=== PATIENT | female | born 1935 | race Caucasian/White ===

== ENCOUNTER 2017-06-20 11:34 | Emergency (ER) | payer OTHER ==
[~2017-06-20] VITALS: Ht 160 cm; Wt 66.8 kg
[~2017-06-20 11:34] MED LIST: ALPHAGAN P100 DROP/5 BOTH EYES; ARICEPT10 MG PO; BYSTOLIC5 MG PO; COZAAR100 MG PO; XALATAN2.5 ML BOTH EYES
[2017-06-20 12:23] LABS: EOSINOPHIL (%) 2.4 % (0-5); EOSINOPHIL COUNT 0.1 K/uL (0-0.3); HEMATOCRIT 40.1 % (36.0-46.0); IMMATURE GRANULOCYTE (%) 0.2 % (0.0-0.7); INSTRUMENT ABS NEUTROPHIL CT 3.7 K/uL; LYMPHOCYTE COUNT 1.1 K/uL (1.0-2.8); MCH 31.7 PG (29.0-34.0); MCHC 33.2 G/DL (30.0-36.0); MCV 95.7 FL (83-99); MONOCYTE (%) 9.4 % (3-12); MONOCYTE COUNT 0.5 K/uL (0-0.8); NEUTROPHIL (%) 67.3 % (45-76); NEUTROPHIL COUNT 3.7 K/uL (1.8-6.4); PLATELET COUNT 165 K/uL (156-360); RBC DIS.WIDTH-CV 13.3 % (11.8-14.6); RBC DIS.WIDTH-SD 47.1 % (39-53); RED BLOOD COUNT 4.19 M/uL (3.80-5.20); WHITE BLOOD COUNT 5.4 K/uL (4.1-10.2)
[2017-06-20 12:40] LABS: CHLORIDE 105 mEq/L (99-109); POTASSIUM 4.7 mEq/L (3.7-5.4); SODIUM 142 mEq/L (136-147)
[2017-06-20 12:41] LABS: GLUCOSE 111 mg/dL (70-99)
[2017-06-20 12:43] LABS: ANION GAP 9 MEQ/L (2-14)
[2017-06-20 12:45] LABS: GFR ESTIMATE (CALCULATED) > 59 mL/min/
[2017-06-20 12:46] LABS: UREA NITROGEN (BUN) 22 mg/dL (9-23)
[2017-06-20 14:05] VITALS: BP 156/72
== END 2017-06-20 14:26 | disposition home or self-care (01) ==
LOC: EME 11:34
PROVIDERS: Emergency Medicine
PROC: 0HQ0XZZ Repair Scalp Skin, External Approach (ICD-10-PCS; principal; 2017-06-20)
DX: S01.01XA Laceration without foreign body of scalp, initial encounter (principal); W18.30XA Fall on same level, unspecified, initial encounter; F03.90 Unspecified dementia, unspecified severity, without behavioral disturbance, psychotic disturbance, mood disturbance, and anxiety; I10 Essential (primary) hypertension
CPT/HCPCS: 70450; 80048; 85025; 99281; 99283

== ENCOUNTER 2017-10-29 14:56 | Emergency (ER) | payer OTHER ==
[~2017-10-29] VITALS: Ht 170.2 cm; Wt 63.6 kg
[2017-10-29 15:29] LABS: HEMATOCRIT 37.9 % (36.0-46.0); HEMOGLOBIN 12.7 G/DL (11.9-15.5); MCH 31.7 PG (29.0-34.0); MCHC 33.5 G/DL (30.0-36.0); MCV 94.5 FL (83-99); PLATELET COUNT 145 K/uL (156-360); RBC DIS.WIDTH-CV 13.4 % (11.8-14.6); RBC DIS.WIDTH-SD 46.3 % (39-53); RED BLOOD COUNT 4.01 M/uL (3.80-5.20); WHITE BLOOD COUNT 5.3 K/uL (4.1-10.2)
[2017-10-29 15:39] LABS: ALBUMIN 3.7 g/dL (3.2-4.8); CHLORIDE 108 mEq/L (99-109)
[2017-10-29 15:40] LABS: POTASSIUM 4.1 mEq/L (3.7-5.4); SODIUM 143 mEq/L (136-147)
[2017-10-29 15:42] LABS: GLUCOSE 113 mg/dL (70-99); TOTAL PROTEIN 6.1 g/dL (6.4-8.3)
[2017-10-29 15:44] LABS: TOTAL BILIRUBIN 0.6 mg/dL (0.0-1.0)
[2017-10-29 15:45] LABS: ALKALINE PHOSPHATASE 117 IU/L (3-129); CREATININE 0.9 mg/dL (0.6-1.3); GFR ESTIMATE (CALCULATED) > 59 mL/min/
[2017-10-29 15:47] LABS: AST (GOT) 19 IU/L (2-34); UREA NITROGEN (BUN) 22 mg/dL (9-23)
[2017-10-29 15:48] LABS: ALT (GPT) 14 IU/L (3-49)
[2017-10-29 17:06] LABS: APPEARANCE CLOUDY ((CLEAR)); BILIRUBIN NEGATIVE; BLOOD NEGATIVE; COLOR YELLOW ((YELLOW)); GLUCOSE (STRIP) NEGATIVE; KETONES 5; LEUKOCYTES NEGATIVE; NITRITE NEGATIVE; PROTEIN (STRIP) NEGATIVE; SPECIFIC GRAVITY 1.018 (1.000-1.030)
[2017-10-29 17:20] LABS: AMORPHOUS URATES CRYSTALS 2+; BACTERIA NONE SEEN /HPF; EPITHELIAL CELLS RARE /HPF; MUCUS 2+ /LPF; RED BLOOD CELLS NONE SEEN /HPF (0-5); WHITE BLOOD CELLS NONE SEEN /HPF (0-5)
[2017-10-29 19:35] VITALS: BP 176/71
== END 2017-10-29 19:37 | disposition home or self-care (01) ==
LOC: EME 14:56
PROVIDERS: Emergency Medicine
DX: F03.91 Unspecified dementia, unspecified severity, with behavioral disturbance (principal); I10 Essential (primary) hypertension
CPT/HCPCS: 80053; 81003; 83605; 85027; 87086; 93005; 99281; 99284; J7030

== ENCOUNTER 2017-11-09 15:07 | Inpatient (IN) | payer OTHER ==
[~2017-11-09] VITALS: Ht 167.6 cm; Wt 66.3 kg
[~2017-11-09 15:07] MED LIST changes: -COZAAR100 MG PO; +COZAAR50 MG PO
[2017-11-09 16:32] LABS: BASOPHIL (%) 0.5 % (0-1); EOSINOPHIL (%) 0 % (0-5); HEMATOCRIT 38.5 % (36.0-46.0); HEMOGLOBIN 13.1 G/DL (11.9-15.5); IMMATURE GRANULOCYTE (%) 0.3 % (0.0-0.7); LYMPHOCYTE (%) 9.9 % (15-42); LYMPHOCYTE COUNT 0.6 K/uL (1.0-2.8); MCH 31.8 PG (29.0-34.0); MCV 93.4 FL (83-99); MONOCYTE (%) 20.8 % (3-12); MONOCYTE COUNT 1.3 K/uL (0-0.8); NEUTROPHIL (%) 68.5 % (45-76); NEUTROPHIL COUNT 4.2 K/uL (1.8-6.4); PLATELET COUNT 117 K/uL (156-360); RBC DIS.WIDTH-CV 13.8 % (11.8-14.6); RBC DIS.WIDTH-SD 47.6 % (39-53); RED BLOOD COUNT 4.12 M/uL (3.80-5.20); WHITE BLOOD COUNT 6.2 K/uL (4.1-10.2)
[2017-11-09 16:42] LABS: ALBUMIN 3.9 g/dL (3.2-4.8); CHLORIDE 103 mEq/L (99-109); POTASSIUM 4.5 mEq/L (3.7-5.4); SODIUM 138 mEq/L (136-147)
[2017-11-09 16:43] LABS: MAGNESIUM 1.8 mg/dL (1.3-2.7)
[2017-11-09 16:44] LABS: GLUCOSE 105 mg/dL (70-99)
[2017-11-09 16:45] LABS: TOTAL PROTEIN 6.5 g/dL (6.4-8.3)
[2017-11-09 16:46] LABS: TOTAL BILIRUBIN 0.8 mg/dL (0.0-1.0)
[2017-11-09 16:48] LABS: ALKALINE PHOSPHATASE 114 IU/L (3-129); CREATININE 0.9 mg/dL (0.6-1.3); GFR ESTIMATE (CALCULATED) > 59 mL/min/
[2017-11-09 16:49] LABS: UREA NITROGEN (BUN) 17 mg/dL (9-23)
[2017-11-09 16:50] LABS: AST (GOT) 18 IU/L (2-34)
[2017-11-09 16:51] LABS: ALT (GPT) 15 IU/L (3-49)
[2017-11-09 16:52] LABS: TROP-I INTERPRETATION NEGATIVE; TROPONIN-I 0.02 ng/mL (0.0-0.30)
[2017-11-09 17:10] LABS: APPEARANCE SL.HAZY ((CLEAR)); BILIRUBIN NEGATIVE; BLOOD NEGATIVE; COLOR YELLOW ((YELLOW)); GLUCOSE (STRIP) NEGATIVE; KETONES 5; LEUKOCYTES NEGATIVE; NITRITE NEGATIVE; PROTEIN (STRIP) NEGATIVE; SPECIFIC GRAVITY 1.016 (1.000-1.030)
[2017-11-09] MEDS ORDERED: MELATONIN5 M1 PO (17:22)
[2017-11-09] MEDS ORDERED: MIRALAX119 GM PO (17:22)
[2017-11-09] MEDS ORDERED: TYLENOL REGULA325 MG PO (17:22)
[2017-11-09] MEDS ORDERED: ALPRAZOLAM0.5 MG PO (17:22)
[2017-11-09] MEDS ORDERED: SERTRALINE HCL25 MG PO (17:22)
[2017-11-09 17:27] LABS: BACTERIA NONE SEEN /HPF; EPITHELIAL CELLS NONE SEEN /HPF; MUCUS NONE SEEN /LPF; RED BLOOD CELLS 0-5 /HPF (0-5); UCUL ADDED? NO; WHITE BLOOD CELLS 0-5 /HPF (0-5)
[2017-11-10 07:04] LABS: HEMATOCRIT 37.9 % (36.0-46.0); MCH 31.9 PG (29.0-34.0); MCHC 34.3 G/DL (30.0-36.0); MCV 93.1 FL (83-99); PLATELET COUNT 139 K/uL (156-360); RBC DIS.WIDTH-CV 13.8 % (11.8-14.6); RBC DIS.WIDTH-SD 47.3 % (39-53); RED BLOOD COUNT 4.07 M/uL (3.80-5.20)
[2017-11-10 07:52] LABS: CHLORIDE 109 MEQ/L (99-109); CREATININE 0.7 MG/DL (0.6-1.3); GFR ESTIMATE (CALCULATED) > 59 mL/min/; GLUCOSE 93 mg/dL (70-99); POTASSIUM 3.8 MEQ/L (3.7-5.4); SODIUM 142 MEQ/L (136-147); UREA NITROGEN (BUN) 12 mg/dL (9-23)
[2017-11-10 16:33] VITALS: BP 168/80
[2017-11-10 19:00] VITALS: BP 184/86
[2017-11-10 21:03] VITALS: BP 184/86
[2017-11-10 23:50] VITALS: BP 180/70
[2017-11-11 05:06] VITALS: BP 145/67
[2017-11-11 06:48] LABS: BASOPHIL (%) 0.3 % (0-1); EOSINOPHIL (%) 0 % (0-5); HEMATOCRIT 35.9 % (36.0-46.0); IMMATURE GRANULOCYTE (%) 0.3 % (0.0-0.7); LYMPHOCYTE (%) 8.5 % (15-42); LYMPHOCYTE COUNT 0.6 K/uL (1.0-2.8); MCH 30.9 PG (29.0-34.0); MCHC 33.4 G/DL (30.0-36.0); MCV 92.5 FL (83-99); MONOCYTE (%) 11.8 % (3-12); MONOCYTE COUNT 0.8 K/uL (0-0.8); NEUTROPHIL (%) 79.1 % (45-76); NEUTROPHIL COUNT 5.1 K/uL (1.8-6.4); PLATELET COUNT 120 K/uL (156-360); RBC DIS.WIDTH-CV 13.8 % (11.8-14.6); RBC DIS.WIDTH-SD 46.7 % (39-53); RED BLOOD COUNT 3.88 M/uL (3.80-5.20); WHITE BLOOD COUNT 6.4 K/uL (4.1-10.2)
[2017-11-11 06:54] LABS: ALKALINE PHOSPHATASE 76 IU/L (3-129); ALT (GPT) 15 IU/L (3-49); AST (GOT) 28 IU/L (2-34); CHLORIDE 108 MEQ/L (99-109); CREATININE 0.7 MG/DL (0.6-1.3); GFR ESTIMATE (CALCULATED) > 59 mL/min/; GLUCOSE 89 mg/dL (70-99); POTASSIUM 3.6 MEQ/L (3.7-5.4); SODIUM 143 MEQ/L (136-147); TOTAL BILIRUBIN 0.9 MG/DL (0.0-1.0); TOTAL PROTEIN 5.2 G/DL (6.4-8.3); UREA NITROGEN (BUN) 11 mg/dL (9-23)
[2017-11-11 07:46] VITALS: BP 142/78
[2017-11-11 11:28] VITALS: BP 144/76
[2017-11-11 15:15] VITALS: BP 132/68
[2017-11-11 20:06] VITALS: BP 167/67
[2017-11-11 23:10] VITALS: BP 143/66
[2017-11-12 04:22] VITALS: BP 135/60
[2017-11-12 06:55] VITALS: BP 178/80
[2017-11-12 07:01] LABS: BASOPHIL (%) 0.7 % (0-1); EOSINOPHIL (%) 0.3 % (0-5); HEMATOCRIT 35.1 % (36.0-46.0); HEMOGLOBIN 11.7 G/DL (11.9-15.5); LYMPHOCYTE (%) 26.6 % (15-42); LYMPHOCYTE COUNT 0.8 K/uL (1.0-2.8); MCHC 33.3 G/DL (30.0-36.0); MCV 92.9 FL (83-99); MONOCYTE (%) 18.8 % (3-12); MONOCYTE COUNT 0.6 K/uL (0-0.8); NEUTROPHIL (%) 53.6 % (45-76); NEUTROPHIL COUNT 1.6 K/uL (1.8-6.4); PLATELET COUNT 117 K/uL (156-360); RBC DIS.WIDTH-SD 47.4 % (39-53); RED BLOOD COUNT 3.78 M/uL (3.80-5.20); WHITE BLOOD COUNT 2.9 K/uL (4.1-10.2)
[2017-11-12 07:24] LABS: ALBUMIN 3.2 G/DL (3.2-4.8); ALKALINE PHOSPHATASE 75 IU/L (3-129); ALT (GPT) 27 IU/L (3-49); AST (GOT) 39 IU/L (2-34); CHLORIDE 111 MEQ/L (99-109); CREATININE 0.8 MG/DL (0.6-1.3); GFR ESTIMATE (CALCULATED) > 59 mL/min/; GLUCOSE 99 mg/dL (70-99); POTASSIUM 3.9 MEQ/L (3.7-5.4); SODIUM 143 MEQ/L (136-147); TOTAL BILIRUBIN 0.9 MG/DL (0.0-1.0); TOTAL PROTEIN 5.2 G/DL (6.4-8.3); UREA NITROGEN (BUN) 17 mg/dL (9-23)
[2017-11-12 11:00] VITALS: BP 160/74
[2017-11-12 15:19] VITALS: BP 155/76
[2017-11-12 19:39] VITALS: BP 164/82
[2017-11-12 23:31] VITALS: BP 165/70
[2017-11-13 03:21] VITALS: BP 128/89
[2017-11-13 07:25] VITALS: BP 190/110
[2017-11-13 11:53] VITALS: BP 143/84
[2017-11-13 14:42] LABS: HEMATOCRIT 36.2 % (36.0-46.0); MCH 30.5 PG (29.0-34.0); MCHC 33.1 G/DL (30.0-36.0); MCV 91.9 FL (83-99); PLATELET COUNT 118 K/uL (156-360); RBC DIS.WIDTH-CV 13.8 % (11.8-14.6); RBC DIS.WIDTH-SD 47.1 % (39-53); RED BLOOD COUNT 3.94 M/uL (3.80-5.20); WHITE BLOOD COUNT 4.4 K/uL (4.1-10.2)
[2017-11-13 16:38] VITALS: BP 140/70
[2017-11-13 18:39] VITALS: BP 194/84
[2017-11-13 22:33] VITALS: BP 147/84
[2017-11-14 04:08] VITALS: BP 121/84
[2017-11-14 06:11] LABS: BASOPHIL (%) 0.3 % (0-1); EOSINOPHIL (%) 0 % (0-5); HEMATOCRIT 35.7 % (36.0-46.0); HEMOGLOBIN 12.1 G/DL (11.9-15.5); IMMATURE GRANULOCYTE (%) 0.5 % (0.0-0.7); LYMPHOCYTE COUNT 0.6 K/uL (1.0-2.8); MCH 31.3 PG (29.0-34.0); MCHC 33.9 G/DL (30.0-36.0); MCV 92.2 FL (83-99); MONOCYTE (%) 10.6 % (3-12); MONOCYTE COUNT 0.7 K/uL (0-0.8); NEUTROPHIL (%) 78.6 % (45-76); NEUTROPHIL COUNT 4.9 K/uL (1.8-6.4); PLATELET COUNT 110 K/uL (156-360); RBC DIS.WIDTH-CV 13.7 % (11.8-14.6); RBC DIS.WIDTH-SD 46.8 % (39-53); RED BLOOD COUNT 3.87 M/uL (3.80-5.20); WHITE BLOOD COUNT 6.2 K/uL (4.1-10.2)
[2017-11-14 06:37] LABS: ALBUMIN 3.1 G/DL (3.2-4.8); ALKALINE PHOSPHATASE 73 IU/L (3-129); ALT (GPT) 37 IU/L (3-49); AST (GOT) 43 IU/L (2-34); CHLORIDE 107 MEQ/L (99-109); CREATININE 0.7 MG/DL (0.6-1.3); GFR ESTIMATE (CALCULATED) > 59 mL/min/; GLUCOSE 98 mg/dL (70-99); SODIUM 143 MEQ/L (136-147); TOTAL BILIRUBIN 0.8 MG/DL (0.0-1.0); TOTAL PROTEIN 5.4 G/DL (6.4-8.3); UREA NITROGEN (BUN) 13 mg/dL (9-23)
[2017-11-14 07:34] VITALS: BP 120/70
[2017-11-14 11:00] VITALS: BP 141/75
[2017-11-14 13:51] LABS: APPEARANCE CLEAR ((CLEAR)); BILIRUBIN NEGATIVE; BLOOD NEGATIVE; COLOR YELLOW ((YELLOW)); GLUCOSE (STRIP) NEGATIVE; KETONES 20; LEUKOCYTES NEGATIVE; NITRITE NEGATIVE; PROTEIN (STRIP) 30; SPECIFIC GRAVITY 1.018 (1.000-1.030); UCUL ADDED? NO
[2017-11-14 14:50] VITALS: BP 127/61
[2017-11-14 21:57] VITALS: BP 170/88
[2017-11-15] VITALS: BP 141/85
[2017-11-15 04:19] VITALS: BP 140/68
[2017-11-15 06:11] LABS: HEMATOCRIT 35.4 % (36.0-46.0); HEMOGLOBIN 11.7 G/DL (11.9-15.5); MCH 29.9 PG (29.0-34.0); MCHC 33.1 G/DL (30.0-36.0); MCV 90.5 FL (83-99); RBC DIS.WIDTH-CV 13.3 % (11.8-14.6); RBC DIS.WIDTH-SD 44.1 % (39-53); RED BLOOD COUNT 3.91 M/uL (3.80-5.20); WHITE BLOOD COUNT 3.4 K/uL (4.1-10.2)
[2017-11-15 06:19] LABS: PLATELET COUNT 152 K/uL (156-360)
[2017-11-15 06:37] LABS: CHLORIDE 106 MEQ/L (99-109); CREATININE 0.7 MG/DL (0.6-1.3); GFR ESTIMATE (CALCULATED) > 59 mL/min/; GLUCOSE 139 mg/dL (70-99); POTASSIUM 3.9 MEQ/L (3.7-5.4); SODIUM 140 MEQ/L (136-147)
[2017-11-15 06:38] LABS: UREA NITROGEN (BUN) 23 mg/dL (9-23)
[2017-11-15 06:55] VITALS: BP 144/109
[2017-11-15 08:07] LABS: BASOPHIL (%) 0 % (0-1); EOSINOPHIL (%) 0 % (0-5); IMMATURE GRANULOCYTE (%) 0.9 % (0.0-0.7); LYMPHOCYTE (%) 19.1 % (15-42); LYMPHOCYTE COUNT 0.6 K/uL (1.0-2.8); MONOCYTE (%) 2.7 % (3-12); MONOCYTE COUNT 0.1 K/uL (0-0.8); NEUTROPHIL (%) 77.3 % (45-76); NEUTROPHIL COUNT 2.6 K/uL (1.8-6.4); PLAT.SUFFICIENCY ADEQUATE
[2017-11-15 11:13] VITALS: BP 130/82
[2017-11-15] MEDS ORDERED: DUONEB 2.5-0.5 M3 ML AEROSOL (14:17)
[2017-11-15] MEDS ORDERED: PREDNISONE10 MG PO (14:18)
[2017-11-15] MEDS ORDERED: LOPRESSOR25 MG PO (14:18)
[2017-11-15] MEDS ORDERED: DULERA 100 MCG/13 GM IH (14:18)
[2017-11-15] MEDS ORDERED: AUGMENTIN80 MG/ML PO (14:20)
[2017-11-15 16:25] VITALS: BP 140/72
== END 2017-11-15 17:13 | DRG 871 ==
LOC: EME 15:07 → 5EAST 18:21 → EDOF 18:21 → ENRESERV 18:23 → EDOF 11-10 03:25 → ENRESERV 11-10 13:18 → 5EAST 11-10 15:49
PROVIDERS: Emergency Medicine; Hospitalist; Internal Medicine
DX: A41.9 Sepsis, unspecified organism (principal); J15.9 Unspecified bacterial pneumonia; J69.0 Pneumonitis due to inhalation of food and vomit; F02.81 Dementia in other diseases classified elsewhere, unspecified severity, with behavioral disturbance; F05 Delirium due to known physiological condition; J90 Pleural effusion, not elsewhere classified; G30.9 Alzheimer's disease, unspecified; Z51.5 Encounter for palliative care; Z66 Do not resuscitate; R13.10 Dysphagia, unspecified; R09.02 Hypoxemia; I10 Essential (primary) hypertension; H40.9 Unspecified glaucoma; D69.6 Thrombocytopenia, unspecified; J84.10 Pulmonary fibrosis, unspecified; Z79.51 Long term (current) use of inhaled steroids; Z80.9 Family history of malignant neoplasm, unspecified; Z82.49 Family history of ischemic heart disease and other diseases of the circulatory system
CPT/HCPCS: 70450; 71045; 71250; 74176; 80048; 80053; 81003; 83605; 83735; 84484; 85025; 85027; 87040; 87502; 92526 GN; 92610 GN; 93005; 94640; 94640 76; 94760; 97530 GP; 99202; 99281; 99285; J0360; J0456; J1644; J2060; J2543; J2920; J3370; J7030; J7050